=== PATIENT | female | born 1975 | race African-American/Black ===

== ENCOUNTER 2017-01-09 21:46 | Emergency (ER) | payer OTHER ==
[~2017-01-09] VITALS: Ht 162.6 cm; Wt 86.2 kg
[2017-01-09] MEDS ORDERED: TYLE325T5 PO (21:57)
[2017-01-09] MEDS ORDERED: ZYRT10TA2 PO (21:57)
[2017-01-09] MEDS ORDERED: TESS100C PO (22:07)
[2017-01-09] MEDS ORDERED: METF500T PO (22:07)
[2017-01-09] MEDS ORDERED: NUVAMIS2 VA (22:07)
[2017-01-09] MEDS ORDERED: LANTINJ4 SC (22:07)
[2017-01-09] MEDS ORDERED: LISI10TA4 PO (22:07)
[2017-01-09] MEDS ORDERED: VICT18IN SC (22:07)
[2017-01-09] MEDS ORDERED: MUCI600T34 PO (22:07)
[2017-01-09] MEDS ORDERED: AZITHROMYCIN 250 MG TAB PO ONE (22:45)
[2017-01-09] MEDS ORDERED: ALBU17IN2 INH (23:30)
[2017-01-09] MEDS ORDERED: ZITHTAB PO (23:30)
[2017-01-09 23:41] VITALS: BP 122/84
== END 2017-01-09 23:42 | disposition home or self-care (01) ==
LOC: M ED 23:27
DX: J20.9 Acute bronchitis, unspecified (principal); J01.90 Acute sinusitis, unspecified

== ENCOUNTER → 2017-01-23 | Outpatient (CLI) | payer OTHER ==
[~2017-01-23] MED LIST: ALBU17IN2 INH; LANTINJ4 SC; LISI10TA4 PO; METF500T PO; MUCI600T34 PO; NUVAMIS2 VA; TESS100C PO; TYLE325T5 PO; VICT18IN SC; ZITHTAB PO; ZYRT10TA2 PO
--- NOTE | 2017-01-23 19:10 | REP ---
PA and lateral chest: There are no comparisons. The lung burrows are clear. The cardiac size is normal The katja, mediastinum, and bony thorax are unremarkable. Impression: Negative PA and lateral chest. Signed by Eliazar Bartlett MD 01/23/2017 07:02 P
== END ==
LOC: M LRY 18:39
PROVIDERS: ATTEND Nurse Practitioner Family
DX: R05 Cough (principal)
CPT/HCPCS: 71020; G0463; J7644

== ENCOUNTER → 2017-03-03 | Outpatient (CLI) | payer OTHER ==
--- NOTE | 2017-03-03 13:40 | REP ---
Clinical: Enlarged thyroid gland by a physical examination. Technique: Real time may scale and color evaluation using linear and curved array transducers. Findings: Right thyroid lobe measures 4.7 x 2.1 x 2.0 cm and includes 7.5 x 4.5 x 5.2 cm complex cyst in the posterior upper pole. Isthmus measures 9.2 mm in width. Left lobe measures 4.7 x 2.0 x 2.1 cm and includes a vague 7 x 5 x 6 mm nodule in the posterior lower pole. Impression: Thyroid gland is upper limits of normal in size and demonstrates solitary bilateral complex cyst and nodule as described above. Signed by Geronimo Busby MD 03/03/2017 01:32 P
== END ==
LOC: M LRY 09:24
PROVIDERS: ATTEND Family Medicine
DX: E01.0 Iodine-deficiency related diffuse (endemic) goiter (principal)

== ENCOUNTER → 2017-04-01 | Outpatient (REF) | payer OTHER ==
[~2017-04-01] MED LIST changes: -METF500T PO; +METF500T13 PO; -MUCI600T34 PO; +MUCI600T37 PO
[2017-04-01 12:18] LABS: FREE T4 1.05 NG/DL (0.76-1.46)
== END ==
LOC: M SFHCLERA 08:24
PROVIDERS: ATTEND Family Medicine
DX: E11.9 Type 2 diabetes mellitus without complications (principal)

== ENCOUNTER → 2017-07-17 | Outpatient (REF) | payer OTHER | LOC: M SFHCLERA 09:46 | PROVIDERS: ATTEND Family Medicine | DX: E11.9 Type 2 diabetes mellitus without complications (principal) ==

== ENCOUNTER → 2017-08-19 | Outpatient (CLI) | payer OTHER ==
--- NOTE | 2017-08-19 12:40 | REP ---
Thyroid ultrasound: Comparison 03/03/2017. The right lobe of the thyroid is enlarged measuring 5.7 x 2.2 x 2.4 cm. Previously it measured 4.7 x 2: By 2.0 cm. The left lobe of the thyroid gland is enlarged measuring 5-0.2 x 2.1 cm. Previously measured 4.7 x 2.0 x 2.1 cm. The isthmus is thickened measuring up to 7.3 mm. Previously the isthmus measures 9.2 mm thickness. There is a complex cyst in the upper pole right lobe measuring 0.5 x 0.7 by 0.5 cm. Previously this measured up to 0.9 cm. There is a nodule in the mid pole of the left thyroid lobe measuring 0.6 x 0.9 x 0.5 cm. Previously this measured up to 0.7 cm. The thyroid parenchyma is otherwise homogeneous. Signed by Eliazar Bartlett MD 08/19/2017 12:32 P
== END ==
LOC: M LRY 09:17
PROVIDERS: ATTEND Family Medicine
DX: E01.0 Iodine-deficiency related diffuse (endemic) goiter (principal)

== ENCOUNTER 2017-11-26 16:00 | Emergency (ER) | payer OTHER ==
[2017-11-26] MEDS: NS 1,000 ML IV ×2 (17:15)
[2017-11-26 17:59] LABS: BASO % 0.4 % (0.0-1.0); EOS # 0.1 10^3/uL (0.0-0.50); HEMATOCRIT 43.2 % (36.0-47.0); HEMOGLOBIN 14.9 g/dl (12.0-16.0); IMMATURE GRANULOCYTE % 0.1 % (0-3.0); LYMPH % 24.5 % (24.0-44.0); MEAN CORPUSCULAR HEMOGLOBIN 29.4 pg (27.0-33.0); MEAN CORPUSCULAR HGB CONC 34.5 g/dl (32.0-36.5); MEAN CORPUSCULAR VOLUME 85.2 fl (80.0-96.0); MONO # 0.4 10^3/uL (0.0-0.8); MONO % 5.3 % (0.0-5.0); NEUTROPHILS # 5.6 10^3/uL (1.8-7.7); NEUTROPHILS % 68.7 % (36.0-66.0); PLATELET COUNT, AUTOMATED 356 10^3/uL (150-450); RED BLOOD COUNT 5.07 10^6/uL (4.00-5.40); WHITE BLOOD COUNT 8.1 10^3/uL (4.0-10.0)
[2017-11-26 18:03] LABS: CONTROL LINE UCG INT CTR LINE PRESENT; URINE PREG TEST NEGATIVE (NEGATIVE)
[2017-11-26 18:18] LABS: KETONE, URINE AUTO RFX TRACE mg/dL (NEGATIVE); NITRITE, URINE AUTO RFX NEGATIVE (NEGATIVE); RBC, URINE AUTO RFX 2 /HPF (0-3); SPECIFIC GRAVITY UR AUTO RFX 1.012 (1.002-1.035); SQUAM EPITHELIAL CELL UR AURFX 1 /HPF (0-6); WBC, URINE AUTO RFX 1 /HPF (0-3)
[2017-11-26 18:18] LABS: BEDSIDE GLUCOSE 297 MG/DL (70-105)
[2017-11-26 18:26] LABS: LEUKOCYTE ESTERASE UR AUTO RFX TRACE (NEGATIVE)
[2017-11-26 18:28] LABS: ALBUMIN 3.8 GM/DL (3.2-5.2); ALBUMIN/GLOBULIN RATIO 0.88 (1.00-1.93); ALKALINE PHOSPHATASE 87 U/L (45-117); ALT/SGPT 28 U/L (12-78); AMYLASE 35 U/L (25-115); ANION GAP 12 MEQ/L (8-16); AST/SGOT 29 U/L (7-37); BILIRUBIN,DIRECT 0.1 MG/DL (0.0-0.2); BILIRUBIN,TOTAL 0.4 MG/DL (0.2-1.0); BLOOD UREA NITROGEN 11 MG/DL (7-18); CALCIUM LEVEL 9.3 MG/DL (8.5-10.1); CARBON DIOXIDE LEVEL 19 MEQ/L (21-32); CHLORIDE LEVEL 102 MEQ/L (98-107); CREATININE FOR GFR 0.79 MG/DL (0.55-1.30); GLOMERULAR FILTRATION RATE > 60.0 (>58); GLUCOSE, FASTING 322 MG/DL (70-100); LIPASE 131 U/L (73-393); SODIUM LEVEL 133 MEQ/L (136-145); TOTAL PROTEIN 8.1 GM/DL (6.4-8.2)
[2017-11-26] MEDS: GI COCKTAIL 50ML BTL(HYOSCYAMINE/MAALOX/LIDOCAINE VISCOUS)(1:3:1) PO ×2 (19:00)
== END 2017-11-26 19:21 | disposition home or self-care (01) ==
LOC: M ED 16:00
DX: K29.00 Acute gastritis without bleeding (principal); K76.0 Fatty (change of) liver, not elsewhere classified; I10 Essential (primary) hypertension; E78.00 Pure hypercholesterolemia, unspecified; E11.9 Type 2 diabetes mellitus without complications; Z79.899 Other long term (current) drug therapy; Z79.4 Long term (current) use of insulin
CPT/HCPCS: 76705

== ENCOUNTER → 2018-07-13 | Outpatient (REF) | payer OTHER ==
[2018-07-13 18:37] LABS: ALBUMIN 3.5 GM/DL (3.2-5.2); ALBUMIN/GLOBULIN RATIO 1.06 (1.00-1.93); ALKALINE PHOSPHATASE 98 U/L (45-117); ALT/SGPT 20 U/L (12-78); ANION GAP 8 MEQ/L (8-16); AST/SGOT 11 U/L (7-37); BILIRUBIN,TOTAL 0.5 MG/DL (0.2-1.0); BLOOD UREA NITROGEN 9 MG/DL (7-18); CALCIUM LEVEL 9.1 MG/DL (8.5-10.1); CARBON DIOXIDE LEVEL 26 MEQ/L (21-32); CHLORIDE LEVEL 101 MEQ/L (98-107); FREE T4 1.13 NG/DL (0.76-1.46); GLOMERULAR FILTRATION RATE > 60.0 (>58); GLUCOSE, FASTING 374 MG/DL (70-100); POTASSIUM SERUM 4.5 MEQ/L (3.5-5.1); SODIUM LEVEL 135 MEQ/L (136-145); TOTAL PROTEIN 6.8 GM/DL (6.4-8.2)
[2018-07-13 18:57] LABS: CREATININE, URINE 49.4 MG/DL; MALB URINE SIEMENS < 5.0 MG/L
[2018-07-13 18:58] LABS: MAU/CREAT RATIO 10.1 MCG/MG (0.0-30.0)
[2018-07-13 19:35] LABS: ESTIMATED AVERAGE GLUCOSE 309 MG/DL (60-110); HEMOGLOBIN A1c 12.4 %
== END ==
LOC: M SFHCLERA 10:23
DX: E11.9 Type 2 diabetes mellitus without complications (principal); F32.2 Major depressive disorder, single episode, severe without psychotic features

== ENCOUNTER → 2018-10-14 | Outpatient (REF) | payer OTHER ==
[~2018-10-14] MED LIST changes: +ATOR1TAB19 PO; +PEPC1TAB5 PO; +ZOFR4TAB14 PO; +ZYRT10CA5 PO; -ZYRT10TA2 PO
[2018-10-14 17:20] LABS: BLOOD UREA NITROGEN 9 MG/DL (7-18); CALCIUM LEVEL 9.1 MG/DL (8.5-10.1); CARBON DIOXIDE LEVEL 31 MEQ/L (21-32); CHLORIDE LEVEL 99 MEQ/L (98-107); CHOLESTEROL LEVEL 168 MG/DL (<200); CHOLESTEROL RISK RATIO 2.847 (<5); CREATININE FOR GFR 0.67 MG/DL (0.55-1.30); FREE T4 1.11 NG/DL (0.76-1.46); GLOMERULAR FILTRATION RATE > 60.0 (>58); GLUCOSE, FASTING 256 MG/DL (70-100); HDL CHOLESTEROL 59 MG/DL (>40); LDL CHOLESTEROL 78 MG/DL (<100); NON-HDL-C 109 MG/DL; POTASSIUM SERUM 4.9 MEQ/L (3.5-5.1); SODIUM LEVEL 135 MEQ/L (136-145); THYROID STIMULATING HORMONE 0.831 uIU/ML (0.358-3.740); TRIGLYCERIDES LEVEL 154 MG/DL (<150)
[2018-10-14 17:23] LABS: HEMOGLOBIN A1c 12.6 %
[2018-10-14 17:37] LABS: CREATININE, URINE 34.1 MG/DL; MALB URINE SIEMENS < 5.0 MG/L; MAU/CREAT RATIO 14.6 MCG/MG (0.0-30.0)
== END ==
LOC: M SFHCLERA 10:57
PROVIDERS: ATTEND Family Medicine
DX: E11.9 Type 2 diabetes mellitus without complications (principal); E78.5 Hyperlipidemia, unspecified; I10 Essential (primary) hypertension; E04.1 Nontoxic single thyroid nodule

== ENCOUNTER → 2018-11-19 | Outpatient (CLI) | payer OTHER ==
--- NOTE | 2018-11-19 19:11 | REP ---
Clinical: Thyroid nodule. Comparison: 08/19/2017. Technique: Real time may scale and color evaluation using linear high frequency and curved array transducers. Findings: The right thyroid lobe is normal in overall parenchymal echo texture and measures 6.2 x 2.2 x 1.7 cm including 8 x 4 x 5 mm upper pole complex cyst with small mural nodule (previously measuring 5 x 7 x 5 mm) and new 6 x 4 x 5 mm lower pole cyst. The left lobe measures 5.9 x 2.4 x 1.9 cm and includes a 4 x 2 x 3 mm hypoechoic nodule to the left of the isthmus (previously measuring 6 x 9 x 5 mm). Impression: 1. New right lower pole cyst. 2. Remainder examination appears relatively stable. Electronically Signed by Geronimo Busby MD 11/19/2018 07:03 P
== END ==
LOC: M LRY 13:29
PROVIDERS: ATTEND Family Medicine
DX: E04.1 Nontoxic single thyroid nodule (principal)